=== PATIENT | male | born 1995 | race Caucasian/White ===

== ENCOUNTER 2024-07-09 18:37 | Emergency (ER) | payer OTHER, SELFPAY ==
[2024-07-09 18:43] VITALS: BP 148/78
[2024-07-09] MEDS: TYLENOL 1000 MG PO (18:48)
[2024-07-09] MEDS: MOTRIN 600 MG PO (18:49)
[2024-07-09 19:14] LABS: COVID-19 Antigen Negative (Negative)
--- NOTE | 2024-07-09 19:29 | ED.GENMED ---
History of Present Illness
General
Chief Complaint: Fever
Source: patient
Exam Limitations: none
Time Seen by Provider: 07/09/24 19:21
History of Present Illness
History of Present Illness:
Healthy 29-year-old male 24 hours of fever. No other symptoms. No sore throat minimal cough no shortness of breath no hemoptysis no abdominal pain nausea vomiting or other complaints. Patient is healthy. He did not have the flu shot this year
Past History
Past History
ED Past Medical History: None
ED Past Surgical History: None
Social History
Tobacco: Non-smoker
Alcohol: Occasional
Drug: None
Personal: Single
Living: with family
Review of Systems
Review of Systems
All Other Systems: Not applicable
Constitutional: Reports fever
Respiratory: Denies trouble breathing
Cardiac: Denies chest pain
ABD/GI: Denies abdominal pain
Phy Exam
Physical Exam
Physical Exam:
GENERAL: Alert and oriented in no apparent distress
EYE: Orbits normal.
NECK: Supple
CARDIAC: Regular rate and rhythm without any obvious murmurs.
LUNGS: Clear breath sounds,normal
ABDOMEN: Soft, without focal tenderness or distention
NEUROLOGICAL: Alert and oriented , grossly non-focal
SKIN: Warm and dry
PSYCH: Normal and appropriate interaction.
Course
Orders/Labs/Results
Orders:
Orders
07/09/24 18:47
Acetaminophen [Tylenol] 1,000 mg .ROUTE .STK-MED ONE
Ibuprofen [Motrin] 600 mg .ROUTE .STK-MED ONE
07/09/24 18:48
Acetaminophen [Tylenol] 1,000 mg PO NOW STA
07/09/24 18:49
Ibuprofen [Motrin] 600 mg PO NOW STA
07/09/24 18:51
COVID-19 Antigen Urgent
Source: Nasal Swab
Influenza A+B Rapid Molecular Urgent
JOHN Source: Nasal Swab
Specimen Description:
Vital Signs
Initial and Last Documented VS:
Initial Vital Signs
Temp Pulse Resp BP Pulse Ox
102.1 F H 105 18 148/78 98
07/09/24 18:43 07/09/24 18:43 07/09/24 18:43 07/09/24 18:43 07/09/24 18:43
Last Documented Vital Signs
Temp Pulse Resp BP Pulse Ox
102.1 F H 105 18 148/78 98
07/09/24 18:43 07/09/24 18:43 07/09/24 18:43 07/09/24 18:43 07/09/24 18:43
MDM/Problems Addressed
Differential Diagnosis Includes:
21-year-old male influenza A positive. Healthy no medical issues nontoxic benign exam. Clear lungs. No indication for radiologic testing. Discussed plus/ minus of Tamiflu. Will hold off. Should tolerate the viral illness well.
*Pulse Oximetry
Patient hypoxic: no
*Critical Care Note
Total Time (30-74mins, 75-104mins- exclusive of procedures): Not Applicable
ED Attending Note
-
Portions of this chart may have been created with voice recognition software.� Occasional wrong word or��sound alike� substitutions may have occurred due to the inherent limitations of voice recognition software.
Discharge Plan
Departure
Patient Disposition: Home (Routine Discharge)
Date of Disposition: 07/09/24
Time of Disposition: 19:31
Patient with high blood pressure during this ER visit?: Yes
Discharge Problem:
Influenza
Instructions: Flu in adults - ED discharge instructions, BLOOD PRESSURE
Prescriptions:
No Action
No Current Medications
0
Activity Restrictions/Additional Instructions:
Like Tylenol or ibuprofen for fever and aches
Stay well-hydrated
Recheck with progression of symptoms or if symptoms or not improving in 2 to 3 days
Interventions
Interventions:
*Risk Screen - Suicide Last Done: 07/09/24 18:43
*General Assessment Last Done: 07/09/24 19:26
*Neglect/Abuse Screening Last Done: 07/09/24 18:43
*ED COVID-19 Vaccine History Last Done: 07/09/24 19:26
ED- Neurological Assessment Last Done: 07/09/24 19:26
ED-Skin Assessment Last Done: 07/09/24 19:26
Discharge Date and Time
Print Language: [id number]
[2024-07-09 19:39] VITALS: BP 140/70
== END 2024-07-09 19:50 | disposition home or self-care (01) ==
LOC: EMR 18:37
PROVIDERS: EMERGENCY PHYSICIAN Emergency Medicine; FAMILY PHYSICIAN Family Medicine
DX: J11.1 Influenza due to unidentified influenza virus with other respiratory manifestations (principal)
CPT/HCPCS: 99282; 87502; 87811